=== PATIENT | female | born 1980 | race Caucasian/White ===

== ENCOUNTER 2023-11-11 06:17 | Emergency (ER) | payer BC, SELFPAY ==
[2023-11-11 06:18] VITALS: BP 113/78
--- NOTE | 2023-11-11 06:51 | ED.GENMED ---
History of Present Illness
General
Chief Complaint: Headache
Source: patient and spouse
Time Seen by Provider: 11/11/23 06:39
Travel History
Have you had any contact with someone who has COVID-19?: No
Do you have any symptoms of coronavirus? Fever > 100 degrees, chills, cough, shortness of breath, sore throat, loss of taste or smell, muscle aches, or headache?: No
History of Present Illness
History of Present Illness:
This patient is a 43-year-old female with a longstanding history of migraines. She gets regular Botox injections, and also takes medication as needed Imitrex. Her headaches have been well-controlled, and then she started to get migraines again in
late October. She has been using Imitrex with relief of symptoms, taking is much as 3 times a week. She saw a neurologist yesterday who discouraged her from taking Imitrex irregularly and started her on nortriptyline. Her first dose was last
night. She was instructed that she cannot take Imitrex while on nortriptyline. She went to bed feeling generally well, but woke up in the middle the night with what she describes as a left-sided 'migraine' which is very characteristic for her.
She fell back asleep for a few hours and has been up since 530 with continued pain. The pain is located on the left side of her head without radiation, exacerbating, relieving factors. She denies associated photophobia, nausea, vomiting, fever,
chills, blurry vision, double vision, visual field cut, abdominal pain, numbness, tingling, weakness, dizziness, or other complaints. The pain was not abrupt in onset and again is extremely characteristic of prior migraines.
Past History
Past History
ED Past Medical History: Other (Migraines)
ED Past Surgical History: and Other (Rectal fistula repair, breast reduction, 'tummy tuck')
Social History
Tobacco: Non-smoker
Alcohol: None
Drug: None
Personal:
Living: with family
Phy Exam
Physical Exam
Physical Exam:
GENERAL: Alert , appears uncomfortable but pleasant
EYE: pupils equal and reactive, no objective photophobia, EOMI, no nystagmus, no field cut noted
NECK: Supple, no significant adenopathy.
ENT: o/p clr, mmm.
CARDIAC: Regular rate and rhythm .
LUNGS: Clear breath sounds bilaterally, no acute respiratory distress,
ABDOMEN: Soft, without focal tenderness, no r/g, no cvat
NEUROLOGICAL: Alert and oriented, no focal neuro deficits, motor 5/5, sens intact, nicuay-[id number] normal, visual gibson intact, gait wnl
SKIN: Warm and dry, skin intact.
MUSCULOSKELETAL: No edema, well perfused.
PSYCH: Normal and appropriate interaction.
Course
Orders/Labs/Results
Orders:
Orders
11/11/23 06:50
0.9% Sodium Chloride 1000 ml [Nss] 1,000 ml IV BOLUS
Diphenhydramine [Benadryl] 50 mg IV NOW STA
Metoclopramide [Reglan] 10 mg IV NOW STA
11/11/23 10:02
Dexamethasone Sod Phosphate [Decadron] 10 mg IV NOW STA
Vital Signs
Initial and Last Documented VS:
Initial Vital Signs
Pulse Resp BP Pulse Ox
79 18 113/78 100
11/11/23 06:18 11/11/23 06:18 11/11/23 06:18 11/11/23 06:18
Last Documented Vital Signs
Temp Pulse Resp BP Pulse Ox
98.6 F 80 18 100/59 98
11/11/23 12:20 11/11/23 12:20 11/11/23 12:20 11/11/23 12:20 11/11/23 12:20
*Critical Care Note
Total Time (30-74mins, 75-104mins- exclusive of procedures): Not Applicable
Update Note
Update Note:
Patient presents to the Emergency Department with ___headache
Number and Complexity of Problems Addressed at the Encounter
� Chronic conditions affecting care:
� Acute Exacerbation and/or Progression of Chronic Illness:
� Differential Diagnosis includes: But not limited to recurrent migraine, tension headache, nonspecific headache, etc.
Amount and/or Complexity of Data to be Reviewed and Analyzed
� I performed an independent evaluation of and my interpretation is:
EKG:
CT:
Xrays:
Laboratory Studies:
Other:
� Review of other/old records reveals:
� Clinical information was obtained by an independent historian: who is bedside
� Prescriptions/Medications Considered but not given:
� Further testing considered but not performed:
Risk of Complications and/or Morbidity or Mortality of Patient Management
� Social determinants of health affecting care:
� Discussion with other providers (PCP, Hospitalists, Consultants, etc):
� Escalation of care including admission/observation vs risk of discharge considered: Patient does not have signs or symptoms to suggest infectious etiology, no fever chills meningismus. Headache not sudden onset of worst of
life to suggest bleed. No recent trauma to suggest subdural/epidural, etc. Patient is neurologically intact.
832AM Pt sleeping, in nad.
11:55 AM multiple reassessments, patient awake alert feels much better although headache not fully resolved she feels manageable and would like to go home. Patient states that she has improved with short courses of steroids and is requesting this
at this time. In the interest of helping her while she transitions to nortriptyline, short course was prescribed for her, risk and benefits discussed with her, encouraged to follow-up with her neurologist and discussed with her reasons to return
the emergency department. Patient is neurologically intact
ED Attending Note
-
Portions of this chart may have been created with voice recognition software.� Occasional wrong word or��sound alike� substitutions may have occurred due to the inherent limitations of voice recognition software.
Discharge Plan
Departure
Patient Disposition: Home (Routine Discharge)
Date of Disposition: 11/11/23
Time of Disposition: 11:52
Patient with high blood pressure during this ER visit?: No
Condition: Good
Discharge Problem:
Headache
Instructions: Headache, Adult (DC)
Prescriptions:
New
prednisone 20 mg tablet
40 mg PO DAILY Qty: 10 0RF
Referrals:
NONE,* [Family Provider] -
Activity Restrictions/Additional Instructions:
PLEASE SEE YOUR NEUROLOGIST AND CLOSE FOLLOW-UP. IF YOU DEVELOP FEVER, CHILLS, VISUAL CHANGES, THE LIGHT HURTS YOUR EYES, CHEST PAIN, SHORTNESS OF BREATH, VOMITING, NUMBNESS, TINGLING, DIZZINESS, WORSENING OR NEW HEADACHE, OR OTHER WORRISOME SIGNS,
PLEASE RETURN TO THE ER IMMEDIATELY.
Interventions
Interventions:
*Risk Screen - Suicide Last Done: 11/11/23 06:18
*General Assessment Last Done: 11/11/23 06:18
*Neglect/Abuse Screening Last Done: 11/11/23 06:18
ED- Fall Risk Assessment Last Done: 11/11/23 06:18
*ED COVID-19 Vaccine History Last Done: 11/11/23 06:18
*Nursing Disposition Last Done: 11/11/23 12:33
ED- Neurological Assessment Last Done: 11/11/23 07:11
Discharge Date and Time
Discharge Date/Time: 11/11/23 12:34
[2023-11-11] MEDS: REGLAN 10 MG IV (07:04)
[2023-11-11] MEDS: BENADRYL 50 MG IV (07:05)
[2023-11-11] MEDS: NSS 1000 IV (07:06)
[2023-11-11 08:35] VITALS: BP 87/53
[2023-11-11 09:00] VITALS: BP 90/51
[2023-11-11 10:00] VITALS: BP 87/55
[2023-11-11] MEDS: DECADRON 10 MG IV (10:11)
[2023-11-11 11:00] VITALS: BP 92/59
[2023-11-11 12:20] VITALS: BP 100/59
== END 2023-11-11 12:34 | disposition home or self-care (01) ==
LOC: EMR 06:17
PROVIDERS: EMERGENCY PHYSICIAN Emergency Medicine
DX: R51.9 Headache, unspecified (principal)
CPT/HCPCS: 99284; 96374; 96375 ×2; 96361